=== PATIENT | male | born 1950 | race Caucasian/White ===

== ENCOUNTER → 2017-05-19 09:32 | Outpatient (CLI) | payer MEDICARE ==
--- NOTE | 2017-05-23 08:06 | EC ---
PATIENT:HARSHAL YORK DATE OF SERVICE: 05/19/17 SEX: M MEDICAL RECORD: [id number] DATE OF : 46 LOCATION:[facility] AGE OF PATIENT: 66 ADMISSION DATE: 05/19/17 REFERRING PHYSICIAN: INTERPRETING PHYSICIAN: ENID CHENG MD ECHOCARDIOGRAM REPORT ECHO CHARGES 4 ECHO COMPLETE CLINICAL DIAGNOSIS: EDEMA/HTN/CP/SOB ECHOCARDIOGRAPHIC MEASUREMENTS (adult normal given) AC root (d.<3.7cm) 4.3 cm LV Septum d (<1.2 cm> 1.4 cm Valve Excursion 1.5 cm LV Septum (systole) 2.0 cm Left Atria (s.<4.0cm> 3.7 cm LVPW d(<1.2cm) 1.4 cm RV (d.<2.3cm) 2.6 cm LVPW (sytole) 2.2 cm LV diastole(<5.6CM) 6.5 cm MV E-F(>70mm/sec) cm LV systole 3.9 cm LVOT Diameter 2.0 cm MV exc.(>10mm) cm Est.ejection fraction (50-75%) % Pericardial Effusion N DOPPLER: LVIT cm/sec A 75.0 cm/sec E 154 cm/sec LA cm/sec RVSP 35.0 mmHg LVOT 134 cm/sec AOP1/2T 732.0m/s Asc. Ao 276 cm/sec RVOT 95.0 cm/sec RA cm/sec PA 125 cm/sec AV Gradient Peak 31.0 mmHg AV Mean 21.0 mmHg AV Area 1.1 cm MV Gradient Peak 12.4 mmHg MV Mean 4.5 mmHg MV Area cm COMMENTS: Hop Farm Worker: Jolie BOOKEROE Horologist: Anna Cheng TAPE# PACS DATE OF SERVICE: 05/19/2017 PROCEDURE: Transthoracic echocardiogram. FINDINGS: 1. The left ventricle has fxyh-ox-tpaopdko concentric left ventricular hypertrophy. Inflow characteristics are normal. 2. The left atrium is normal size, normal function. 3. The right ventricle is normal size, normal function. 4. The aortic valve is thickened with a peak gradient of 31 mmHg indicating ECHOCARDIOGRAM REPORT [id number] HARSHAL YORK [id number] aortic stenosis, calculated valve area of 1.2 cm-squared. 5. The pulmonic valve is not well visualized, but is grossly normal. 6. The pericardium shows no pericardial effusion. 7. The tricuspid valve is normal. 8. The right ventricular systolic pressures are mildly elevated at 25-30 mmHg. IMPRESSION: The patient has evidence of hypertensive heart disease, mild to moderate aortic stenosis and mildly elevated right-sided pressures. TRANSINT:[id number] Voice Confirmation ID: [id number] DOCUMENT ID: [id number] ENID CHENG MD at 0806 CC: [id number] DICTATION DATE: 05/20/17 0938 PRINCIPAL ELECTRICAL ENGINEER: 05/20/17 1036 DEP CLI 05/19/17 [facility] [address] [place] [address]
== END | disposition home or self-care (01) ==
LOC: D.ECHO 09:32 → D.US 11:00
DX: R60.0 Localized edema (principal); I10 Essential (primary) hypertension; R07.9 Chest pain, unspecified; R06.02 Shortness of breath

== ENCOUNTER → 2017-11-24 08:52 | Outpatient (CLI) | payer OTHER ==
--- NOTE | ~2017-11-24 | EC ---
PATIENT:HARSHAL YORK DATE OF SERVICE: 11/24/17 SEX: M MEDICAL RECORD: [id number] DATE OF : [birth year] LOCATION:[facility] AGE OF PATIENT: 67 ADMISSION DATE: 11/24/17 REFERRING PHYSICIAN: INTERPRETING PHYSICIAN: ENID CHENG MD ECHOCARDIOGRAM REPORT ECHO CHARGES 4 ECHO COMPLETE Date: 11/24 CLINICAL DIAGNOSIS: /EDEMA ECHOCARDIOGRAPHIC MEASUREMENTS (adult normal given) AC root (d.<3.7cm) 4.0 cm LV Septum d (<1.2 cm> 1.4 cm Valve Excursion 0.7 cm LV Septum (systole) 2.1 cm Left Atria (s.<4.0cm> 3.3 cm LVPW d(<1.2cm) 1.4 cm RV (d.<2.3cm) 2.9 cm LVPW (sytole) 1.9 cm LV diastole(<5.6CM) 6.4 cm MV E-F(>70mm/sec) cm LV systole 4.3 cm LVOT Diameter 2.2 cm MV exc.(>10mm) cm Est.ejection fraction (50-75%) % DOPPLER: LVIT cm/sec A 59.0 cm/sec E 128 cm/sec LA cm/sec RVSP 36.0 mmHg LVOT 123 cm/sec AOP1/2T 758.0m/s Asc. Ao 334 cm/sec RVOT 94.0 cm/sec RA cm/sec PA 125 cm/sec AV Gradient Peak 45.0 mmHg AV Mean 27.4 mmHg AV Area 1.1 cm MV Gradient Peak 10.0 mmHg MV Mean 3.2 mmHg MV Area cm COMMENTS: List Of First Job Ideas: Jolie BOOKEROE Sheriffs Officer: 4 Dr. Cheng TAPE# PACS Pericardial Effusion N DATE OF SERVICE: PROCEDURE: Transthoracic echocardiogram. FINDINGS: 1. The left ventricle shows mild concentric left ventricular hypertrophy with normal inflow characteristics. The ejection fraction is preserved at 60%. There is no obvious regional wall motion abnormalities. 2. The left atrium is normal size, normal function. 3. The aortic valve is thickened, decreased leaflet mobility, appears to have ECHOCARDIOGRAM REPORT [id number] HARSHAL YORK moderate aortic stenosis with a peak valve gradient of 45 mmHg, calculated valve area of 1.1 cm-squared, peak velocity is 3.5 meters per second. 4. The mitral valve appears to be normal. 5. The tricuspid valve appears to be normal. 6. The pericardium is normal. 7. The right ventricle is normal size, normal function. 8. The right atrium is normal size, normal function. 9. The pulmonic valve not well visualized, but normal by Doppler evaluation. IMPRESSION: The patient has evidence of aortic stenosis that is moderate to severe. TRANSINT:[id number] Voice Confirmation ID: [id number] DOCUMENT ID: [id number] ENID CHENG MD at 0741 CC: [id number] DICTATION DATE: 11/25/17 0740 BITUMINOUS PAVING MACHINE OPERATOR: 11/25/17 1150 [facility] CLI 11/24/17 [id number] [place] [address]
== END | disposition home or self-care (01) ==
LOC: D.ECHO 07-07 09:30
DX: I35.0 Nonrheumatic aortic (valve) stenosis (principal); R60.9 Edema, unspecified

== ENCOUNTER → 2018-06-05 10:08 | Outpatient (CLI) | payer MEDICARE ==
--- NOTE | ~2018-06-05 | EC ---
PATIENT:HARSHAL ROBERTS DATE OF SERVICE: 06/05/18 SEX: M MEDICAL RECORD: [id number] DATE OF : 46 [facility] AGE OF PATIENT: 67 ADMISSION DATE: 06/05/18 REFERRING PHYSICIAN: INTERPRETING PHYSICIAN: ENID KUMAR MD ECHOCARDIOGRAM REPORT ECHO CHARGES 4 ECHO COMPLETE Date: 06/05/18 CLINICAL DIAGNOSIS: DYSPNEA/ANGINA/ ECHOCARDIOGRAPHIC MEASUREMENTS (adult normal given) AC root (d.<3.7cm) 4.1 cm LV Septum d (<1.2 cm> 1.6 cm Valve Excursion 1.3 cm LV Septum (systole) 2.6 cm Left Atria (s.<4.0cm> 3.4 cm LVPW d(<1.2cm) 1.7 cm RV (d.<2.3cm) 2.3 cm LVPW (sytole) 2.3 cm LV diastole(<5.6CM) 6.0 cm MV E-F(>70mm/sec) cm LV systole 3.4 cm LVOT Diameter 2.2 cm MV exc.(>10mm) cm Est.ejection fraction (50-75%) % DOPPLER: LVIT cm/sec A 77.0 cm/sec E 100 cm/sec LA cm/sec RVSP 24.0 mmHg LVOT 133 cm/sec AOP1/2T m/s Asc. Ao 313 cm/sec RVOT 85.0 cm/sec RA cm/sec PA 116 cm/sec AV Gradient Peak 39.3 mmHg AV Mean 23.1 mmHg AV Area 1.4 cm MV Gradient Peak 5.6 mmHg MV Mean 2.2 mmHg MV Area cm COMMENTS: Hole Digger Operator: Jolie BOOKEROE Applications Consultant: Anna Kumar TAPE# PACS Pericardial Effusion N DATE OF SERVICE: PROCEDURE: Transthoracic echocardiogram. FINDINGS: 1. The left ventricle is mildly dilated with left ventricular hypertrophy. The ejection fraction is preserved at 60%. 2. The left atrium is normal. 3. The aortic valve has mild sclerotic appearance. Peak pressure gradient is 39 mmHg indicating mild aortic stenosis, valve area of 1.4 cm-squared. ECHOCARDIOGRAM REPORT [id number] HARSHAL ROBERTS 4. The mitral valve is normal. 5. The tricuspid valve is normal. 6. The right ventricle is normal. 7. Right atrium is mildly dilated. 8. The pulmonic valve is not well visualized, but otherwise grossly normal. CONCLUSIONS: The patient has evidence of hypertensive heart disease, moderate in nature, concentric. Also evidence of at least mild aortic stenosis. RECOMMENDATIONS: Would repeat an echocardiogram in 6 months to assess any progression of the aortic valvular gradient. TRANSINT:[id number] Voice Confirmation ID: [id number] DOCUMENT ID: [id number] ENID KUMAR MD at 0916 CC: [id number] DICTATION DATE: 06/09/18 0951 TOW MOTOR MECHANIC: 06/09/18 1112 DEP CLI 06/05/18 [id number] [place] [address]
== END | disposition home or self-care (01) ==
LOC: D.ECHO 10:08
DX: R06.02 Shortness of breath (principal); I20.9 Angina pectoris, unspecified; I35.0 Nonrheumatic aortic (valve) stenosis

== ENCOUNTER → 2019-04-21 10:42 | Outpatient (CLI) | payer MEDICARE | END | disposition home or self-care (01) | LOC: D.HCCARDIO 10:42 | PROVIDERS: ATTEND Internal Medicine Cardiovascular Disease | DX: I20.9 Angina pectoris, unspecified (principal) ==

== ENCOUNTER → 2019-04-23 14:08 | Outpatient (CLI) | payer MEDICARE ==
--- NOTE | 2019-04-27 13:38 | EC ---
PATIENT:HARSHAL YORK DATE OF SERVICE: 04/23/19 SEX: M MEDICAL RECORD: [id number] DATE OF : 46 LOCATION:[facility] AGE OF PATIENT: 68 ADMISSION DATE: 04/23/19 REFERRING PHYSICIAN: INTERPRETING PHYSICIAN: ELLE BOB MD ECHOCARDIOGRAM REPORT ECHO CHARGES 4 ECHO COMPLETE Date: 04/23/19 CLINICAL DIAGNOSIS: DYSPNEA ECHOCARDIOGRAPHIC MEASUREMENTS (adult normal given) AC root (d.<3.7cm) 4.2 cm LV Septum d (<1.2 cm> 1.5 cm Valve Excursion 1.6 cm LV Septum (systole) 2.0 cm Left Atria (s.<4.0cm> 3.6 cm LVPW d(<1.2cm) 1.6 cm RV (d.<2.3cm) 3.2 cm LVPW (sytole) 12.0 cm LV diastole(<5.6CM) 5.5 cm MV E-F(>70mm/sec) cm LV systole 3.4 cm LVOT Diameter 1.6 cm MV exc.(>10mm) 2.1 cm Est.ejection fraction (50-75%) % DOPPLER: LVIT cm/sec A 91.0 cm/sec E 116.0 cm/sec LA cm/sec RVSP 20 mmHg LVOT 129 cm/sec AOP1/2T m/s Asc. Ao 365 cm/sec RVOT 75 cm/sec RA cm/sec PA 111 cm/sec AV Gradient Peak 53.28mmHg AV Mean 32.58mmHg AV Area 1.1 cm MV Gradient Peak 6.06 mmHg MV Mean 2.51 mmHg MV Area cm COMMENTS: Rug Inspector Helper: 2 JUAN LUIS MIR Cashier Host/Hostess: 1 Dr. Bob TAPE# PACA Pericardial Effusion N DATE OF SERVICE: PROCEDURE: Echocardiogram. FINDINGS: 1. Left ventricular chamber size is within normal limits. Left ventricular systolic function is normal at 65% to 70%. 2. Left atrium is within normal limits at 3.6 cm. Right atrium and right ventricle chamber sizes are mildly dilated. 3. Valvular structures: Aortic valve demonstrates cllhzpyo-op-kzvyij calcific ECHOCARDIOGRAM REPORT [id number] HARSHAL YORK aortic stenosis, the valve area calculates to 0.8 cm-squared with gradient 53 mm across the valve. The remaining valvular structures have normal structure and motion. 4. Doppler interrogation elsewise reveals no significant valvular insufficiency or stenosis and pulmonary systolic pressure is normal estimated at 20 mmHg. 5. No evidence of pericardial effusion or left ventricular thrombus. TRANSINT:[id number] Voice Confirmation ID: [id number] DOCUMENT ID: [id number] ELLE BOB MD at 1338 CC: [id number] DICTATION DATE: 04/26/19 1022 OIL WELL ENGINEER: 04/26/19 1132 DEP CLI 04/23/19 [id number] [place] [address]
== END | disposition home or self-care (01) ==
LOC: D.HCCECHO 14:08
PROVIDERS: ATTEND Internal Medicine Interventional Cardiology
DX: R06.09 Other forms of dyspnea (principal)